=== PATIENT | female | born 1955 | race Caucasian/White ===

== ENCOUNTER → 2016-06-14 | Outpatient (CLI) | payer BC ==
[~2016-06-14] MED LIST: ASPIRIN ADULT L81 M1 PO; COLLAGEN ULTRA PO; FISH OIL1000 M1 PO; FLAX SEED OIL1000 MG PO; MAGNESIUM400 M1 PO; TURMERIC450 MG PO
--- NOTE | 2016-06-14 12:29 | DIAGNOSTIC IMAGING REPORT ---
PROCEDURE: MG BILATERAL SCREENING W/CAD INDICATION: SCREENING TECHNIQUE: Bilateral CC and MLO digital views. COMPARISON: Compared to 12/30/2012, right mammogram studies (04/02/2012, 08/30/2011), and screening mammogram 08/22/2011. FINDINGS: Computer-aided detection applied. Dense parenchymal pattern. Findings suggest an 8 mm ovoid nodular density with obscured margins in the lower left breast (may be located medially). IMPRESSION: 1. Findings suggest development of an 8 mm nodular density in the lower right breast (most likely medial location). While this may represent normal tissue, underlying mass or cyst should be considered. Further mammographic views (true lateral view, CC and MLO spot compression views) are recommended. In addition, right breast ultrasound is recommended. RESULT CODE: 0- Incomplete; needs additional evaluation. A. A negative report should not delay biopsy if a dominant or clinically suspicious mass is present. 10-15% of cancers are not identified by x-ray. B. A negative report may reinforce clinical impression. C. Adenosis and dense breasts may obscure an underlying neoplasm. D. False positive reports average 6-10%. E.. A yearly screening mammogram is recommended. A reminder letter will be scheduled.
== END ==
LOC: MAM SRH 10:27
DX: Z12.31 Encounter for screening mammogram for malignant neoplasm of breast (principal)

== ENCOUNTER 2016-06-25 10:37 | Outpatient (CLI) | payer BC ==
[2016-06-25] MEDS ORDERED: MAGNESIUM400 M1 PO (16:03)
[2016-06-25] MEDS ORDERED: FLAX SEED OIL1000 MG PO (16:03)
[2016-06-25] MEDS ORDERED: TURMERIC450 MG PO (16:04)
[2016-06-25] MEDS ORDERED: ASPIRIN ADULT L81 M1 PO (16:04)
[2016-06-25] MEDS ORDERED: COLLAGEN ULTRA PO (16:05)
[2016-06-25] MEDS ORDERED: FISH OIL1000 M1 PO (16:06)
--- NOTE | 2016-06-25 17:03 | DIAGNOSTIC IMAGING REPORT ---
PROCEDURE: MG UNILATERAL DIAG-RT W/CAD INDICATION: : EVALUATE NODULAR DENSITY SEEN ON SCREENING TECHNIQUE: Spot compression mammographic views of the right breast in the CC and MLO projection. A direct lateral right breast mammogram using CAD. The patient then went to ultrasound where villalobos-scale and color Doppler sonographic imaging of the right breast was performed. COMPARISON: 06/14/2016, 12/30/2012, 04/02/2012 FINDINGS: Mammograms: With focal spot compression, there is no discrete persistent density visible amongst the dense, slightly heterogeneous glandular parenchyma. No architectural distortion or clustered calcifications. The direct lateral right mammogram is negative. Ultrasound: Inferomedial and inferolateral aspects of the right breast were scanned. Dense fibroglandular tissue is present. No discrete cyst, shadowing solid area, or abnormal vascular flow. IMPRESSION: 1. With special mammographic views and sonographic evaluation, no suspicious finding in the right breast to correspond to the finding on screening mammography. 2. The patient can resume yearly screening mammography. Findings and recommendations were discussed with the patient. RESULT CODE: 1- Negative. A. A negative report should not delay biopsy if a dominant or clinically suspicious mass is present. 10-15% of cancers are not identified by x-ray. B. A negative report may reinforce clinical impression. C. Adenosis and dense breasts may obscure an underlying neoplasm. D. False positive reports average 6-10%. E.. A yearly screening mammogram is recommended. A reminder letter will be scheduled.
== END 2016-06-25 23:00 ==
LOC: MAM SRH 10:37
DX: R92.2 Inconclusive mammogram (principal)

== ENCOUNTER 2016-06-28 06:51 | Day surgery (SDC) | payer BC ==
[~2016-06-28] VITALS: Ht 161.3 cm; Wt 67.5 kg
--- NOTE | 2016-06-28 10:06 | Provider's Discharge Care Plan ---
Problem, Goal, Plan Problem List 1. Diverticulosis
--- NOTE | 2016-06-28 10:06 | Provider's Discharge Care Plan ---
Problem, Goal, Plan Problem List 1. Diverticulosis
--- NOTE | 2016-06-28 10:35 | OPERATIVE REPORT ---
DATE OF SURGERY: 06/28/2016 SURGEON: Lakhwinder Olivares MD PREOPERATIVE DIAGNOSIS: 1. History of colon polyps POSTOPERATIVE DIAGNOSIS: 1. Diverticulosis PROCEDURE PERFORMED: 1. Colonoscopy ANESTHESIA: Total IV general. INDICATIONS: The patient is a 60-year-old woman with a previous adenomatous colon polyp. SURGICAL TECHNIQUE: The patient was taken to the endoscopy suite, where total IV general was administered and the patient was placed in the left lateral decubitus position. A well-lubricated colonoscope was advanced the length of the colon under direct vision. A few diverticula were seen in the sigmoid colon. The ileocecal valve and proximal cecum were seen. The colon was inspected throughout its entirety and there was an excellent prep. There were no polyps or tumors seen and a retroflexed view of the rectum was also normal. The patient left in good condition. No intraoperative complications were encountered.
[2016-06-28 10:59] VITALS: BP 134/73
== END 2016-06-28 11:10 | disposition home or self-care (01) ==
LOC: OR SRH 06:51 → SCU SRH 06:52 → OR SRH 08:00
PROVIDERS: Surgery
PROC: 0DJD8ZZ Inspection of Lower Intestinal Tract, Via Natural or Artificial Opening Endoscopic (ICD-10-PCS; principal; 2016-06-28 08:30)
DX: Z12.11 Encounter for screening for malignant neoplasm of colon (principal); K57.30 Diverticulosis of large intestine without perforation or abscess without bleeding
CPT/HCPCS: 29229; 29240; 50004; 60001; 83526